=== PATIENT | female | born 1940 | race Caucasian/White ===

== ENCOUNTER 2018-08-21 09:38 | Inpatient (IN) | payer MEDICARE, OTHER ==
[2018-08-21] VITALS (11 sets, daily range): BP systolic 133–162; BP diastolic 39–81
[~2018-08-21] VITALS: Ht 165.1 cm; Wt 79.5 kg
[~2018-08-21 09:38] MED LIST: COLACE100 MG PO; LEVOTHYROXINE50 MCG PO; PRILOSEC20 MG PO; VITAMIN AND MI1 EACH PO; VITAMIN D400 UNIT PO; Z.0.ALTACE10 M1 PO; Z.0.NORVASC5 MG PO; Z.0.SYNTHROID88 MCG PO; [UNRECOGNIZED DRUG - OTHER] PO
--- OUTSIDE RECORDS SUMMARY | 2018-08-21 09:41 | XMS REPORT | Summary of Care ---
Author Author [facility] Organization [facility] Address Unknown Phone Unavailable Encounter HQ Encntr_alirenard(FIN) [id number] Date(s): 04/23/17 - 04/23/17 [facility] [address] [place] [address]- Discharge Disposition: Home or Self Care Attending Physician: Mike Tay MD Referring Physician: Physician, Non Associated MD Vital Signs No data available for this section Problem List No data available for this section Allergies, Adverse Reactions, Alerts No data available for this section Medications No data available for this section Results No data available for this section Immunizations No data available for this section Procedures No data available for this section Social History No data available for this section Assessment and Plan No data available for this section
--- OUTSIDE RECORDS SUMMARY | 2018-08-21 09:41 | XMS REPORT | Continuity of Care Document ---
Author Author [facility] Interface Address Unknown Phone Unavailable Problems Problem Status Onset Date Classification Date Reported Comments Source ROUTINE Active 06/08/2018 [facility] LT HEART CATH Active 01/23/2018 [facility] DX N64.4=// SILAS RICHEY - Active 04/17/2017 [facility] SCREENING MAMMOGRAM Active 02/07/2016 [facility] DENSE BREAST Active 09/15/2014 [facility] MAMMO CALL BACK *CALCIFICATIONS* Active 02/17/2014 [facility] SCREENING MAMMO Active 02/02/2014 [facility] LUMP OR MASS IN BREAST Active [facility] SCREEN MAMMOGRAM NEC Active [facility] ENCNTR SCREEN MAMMOGRAM FOR MALIGNANT NE Active [facility] MASTODYNIA Active [facility] Medications Medication Details Route Status Patient Instructions Ordering Provider Order Date Source Allergies, Adverse Reactions, Alerts Substance Category Reaction Severity Reaction type Status Date Reported Comments Source Immunizations Immunization Date Given Site Status Last Updated Comments Source Results Order Name Results Value Reference Range Date Interpretation Comments Source Breast Mammo Scrn HOME incl CAD MA Breast Mammo Scrn HOME incl CAD MA BILATERAL DIGITAL SCREENING MAMMOGRAM WITH CAD WITH ADDITIONAL VIEWS: 06/23/2018 CLINICAL: Screening/Z12.31. Current study was evaluated with a Computer Aided Detection (CAD) system. COMPARISON:Comparison is made to exams dated: 04/23/2017 mammogram, 02/16/2016 mammogram, 09/22/2014 mammogram, 02/23/2014 mammogram, 02/11/2014 mammogram - [facility], and 12/30/2007 mammogram. TECHNIQUE: Mammographic views were obtained using digital acquisition. Bring Lighta Version 1.3 was utilized for computer aided detection. FINDINGS: There are scattered fibroglandular densities in both breasts. There are benign calcifications, densities, and nodules in both breasts. No significant masses, calcifications, or other findings are seen in either breast. There has been no significant interval change. IMPRESSION: BENIGN RECOMMENDATION:There is no mammographic evidence of malignancy. A 1 year screening mammogram is recommended.(06/24/2019) This exam was interpreted at [id number] for [facility]. Judi baxter/penrad:06/23/2018 09:22:18 Material Spreader(s): Brooke Ragsdale, [facility] letter sent: BI-RADS 1/2 Mammogram BI-RADS: 2 Benign 06/23/2018 - - Read by: Judi Varma MD Dictated Date/time: 06/23/18 09:22 Electronically Signed by: Judi Varma MD 06/23/18 09:22 FINAL REPORT [facility] Breast Limited Uni US Breast Limited Uni US - BREAST LIMITED UNI US/L ULTRASOUND OF LEFT BREAST: 04/23/2017 CLINICAL: /Pain. Comparison is made to exams dated: 04/23/2017 mammogram, 02/16/2016 mammogram, 09/22/2014 mammogram, 02/23/2014 mammogram and 02/11/2014 mammogram - [facility]. Color flow and real-time ultrasound of the left breast were performed. Solo scale images of the real-time examination were reviewed. No abnormalities were seen sonographically in the left breast. IMPRESSION: NEGATIVE There is no sonographic evidence of malignancy. There is no mammographic or sonographic abnormality seen in the left breast to correspond with the pain. A 1 year screening mammogram is recommended. The results were reviewed with the patient. Judi baxter/penrad:04/23/2017 15:44:47 Material Spreader: Deborah Escobar, [facility] This exam was dictated and interpreted by [id number] for [facility]. letter sent: Normal exam Ultrasound BI-RADS: 1 Negative 04/23/2017 - - Read by: Judi Varma MD Dictated Date/time: 04/23/17 15:44 Electronically Signed by: Judi Varma MD 04/23/17 15:44 FINAL REPORT [facility] Breast Mammo Diag HOME incl CAD MA Breast Mammo Diag HOME incl CAD MA - BREAST MAMMO DIAG HOME INCL CAD MA BILATERAL DIGITAL DIAGNOSTIC MAMMOGRAM WITH CAD: 04/23/2017 CLINICAL: /Left Breast Pain. Current study was evaluated with a Computer Aided Detection (CAD) system. Comparison is made to exams dated: 02/16/2016 mammogram, 09/22/2014 mammogram, 02/23/2014 mammogram, 02/11/2014 mammogram - [facility], 12/30/2007 mammogram and 02/25/2006 mammogram. There are scattered fibroglandular densities in both breasts. There are benign calcifications in both breasts. There also are benign densities and nodules in both breasts. No significant masses, calcifications, or other findings are seen in either breast. There has been no significant interval change. IMPRESSION: INCOMPLETE: NEEDS ADDITIONAL IMAGING EVALUATION There is no mammographic abnormality seen in the left breast to correspond with the pain, however ultrasound is recommended. The results were reviewed with the patient. SUMMARY: Ultrasound will be performed at this time; please see dedicated separate report. Judi baxter/penrad:04/23/2017 15:45:01 Material Spreader: Josefa Cavanaugh, [facility] This exam was dictated and interpreted by [id number] for [facility]. Mammogram BI-RADS: 0 Indeterminate 04/23/2017 - - Read by: Judi Varma MD Dictated Date/time: 04/23/17 15:45 Electronically Signed by: Judi Varma MD 04/23/17 15:45 FINAL REPORT [facility] Digital Mammo Screen Home MA w jie Digital Mammo Screen Home MA w jie - DIGITAL MAMMO SCREEN HOME MA W JIE BILATERAL DIGITAL SCREENING MAMMOGRAM 3D/2D WITH CAD: 02/16/2016 CLINICAL: Routine. 2D digital mammographic images and 3D digital tomosynthesis images were obtained in the CC and MLO projections. Current study was evaluated with a Computer Aided Detection (CAD) system. Comparison is made to exams dated: 09/22/2014 mammogram, 02/23/2014 mammogram, 02/11/2014 mammogram - [facility], 12/30/2007 mammogram, 02/25/2006 mammogram and 03/31/2003 mammogram. There are scattered fibroglandular densities in both breasts. There are benign calcifications in both breasts. There also are benign densities and nodules in both breasts. No significant masses, calcifications, or other findings are seen in either breast. There has been no significant interval change. IMPRESSION: BENIGN There is no mammographic evidence of malignancy. A 1 year screening mammogram is recommended. Judi baxter/penrad:02/19/2016 09:13:37 Material Spreader: Renee Sutton [facility] This exam was dictated and interpreted by [id number] for [facility]. letter sent: Normal exam Mammogram BI-RADS: 2 Benign 02/16/2016 - - Read by: Judi Varma MD Dictated Date/time: 02/19/16 09:13 Electronically Signed by: Judi Varma MD 02/19/16 09:13 FINAL REPORT [facility] Digital Mammo DX Uni MA Digital Mammo DX Uni MA - DIGITAL MAMMO DX UNI MA/L UNILATERAL LEFT DIGITAL DIAGNOSTIC MAMMOGRAM WITH CAD: 09/22/2014 CLINICAL: 6 Mo Follow Up. Current study was evaluated with a Computer Aided Detection (CAD) system. Comparison is made to exams dated: 02/23/2014 mammogram, 02/11/2014 mammogram - [facility], 12/30/2007 mammogram, 02/25/2006 mammogram and 03/31/2003 mammogram. There are scattered fibroglandular densities in the left breast. There are benign calcifications in the left breast. There also are benign densities in the left breast. There are stable clustered coarse calcifications in the left breast at 2 o'clock middle depth. These are seen in additional views. This correlates with the prior exam. No other significant masses or calcifications are seen in the breast. There has been no significant interval change. 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 A follow-up in 6 months is recommended. These have shown over 6 months of stability. A follow-up bilateral diagnostic mammogram with left magnification views and possible ultrasound in 6 months is recommended. The patient will be due for her annual exam at that time. Judi baxter/:09/22/2014 14:46:52 Material Spreader: Renee Sutton [facility] This exam was dictated and interpreted by [id number] for [facility]. letter sent: Followup Mammogram BI-RADS: 3 Probably benign 09/22/2014 - - Read by: Judi Varma MD Dictated Date/time: 09/22/14 14:46 Electronically Signed by: Judi Varma MD 09/22/14 14:46 FINAL REPORT [facility] Digital Mammo Screen Home MA w jie Digital Mammo Screen Home MA w jie AMENDMENT: 02/14/2014 Preston Roblero M.D. The patient's prior mammograms dated 12/30/07-03/31/03 are made available and are compared to the most recent examination. No mammographic evidence of malignancy or significant interval change in the right breast, or the left breast densities. However, the described calcifications in the left breast in the slightly upper outer quadrant is not identified on the comparison study. Additional imaging with magnification and lateral views and possible sonography is again recommended for the left breast only. Amended BI-RADS: 0 Indeterminate letter sent: Additional Imaging - DIGITAL MAMMO SCREEN HOME MA W JIE BILATERAL DIGITAL SCREENING MAMMOGRAM 3D/2D WITH CAD: 02/11/2014 CLINICAL: Screen. 2D digital mammographic images and 3D digital tomosynthesis images were obtained in the CC and MLO projections. Current study was evaluated with a Computer Aided Detection (CAD) system. Comparison is made to exams dated: 12/30/2007 mammogram, 02/25/2006 mammogram and 03/31/2003 mammogram. Current study contains 4 films. There are scattered fibroglandular densities in both breasts. There are benign calcifications in the left breast. There is a lobulated density with a circumscribed margin in the right breast at 2 o'clock anterior depth. There also are clustered heterogeneous calcifications in the right breast at 11 o'clock middle depth. There is an oval density with a circumscribed margin in the left breast at 7 o'clock in the retroareolar region. There also are grouped heterogeneous calcifications in the left breast at 1 o'clock anterior depth. No other significant masses or calcifications are seen in either breast. IMPRESSION: INCOMPLETE: NEEDS ADDITIONAL IMAGING EVALUATION The lobulated density in the right breast at 2 o'clock anterior depth is indeterminate. Spot compression and lateral views as well as a possible ultrasound are recommended. The clustered heterogeneous calcifications in the right breast at 11 o'clock middle depth are indeterminate. Spot magnification and lateral views are recommended. The oval density in the left breast at 7 o'clock in the retroareolar region is indeterminate. Spot compression and lateral views as well as a possible ultrasound are recommended. The grouped heterogeneous calcifications in the left breast at 1 o'clock anterior depth are indeterminate. Spot magnification and lateral views are recommended. Preston Roblero M.D. btp/penrad:02/11/2014 14:37:18 Material Spreader: Josefa Cavanaugh, [facility] This exam was dictated and interpreted by [id number] for [facility]. letter sent: Additional Imaging Mammogram BI-RADS: 0 Indeterminate 02/11/2014 - - Read by: Preston Roblero MD Dictated Date/time: 02/14/14 09:02 Electronically Signed by: Preston Roblero MD 02/14/14 09:02 FINAL REPORT - - Read by: Preston Roblero MD Dictated Date/time: 02/11/14 14:37 Electronically Signed by: Preston Roblero MD 02/11/14 14:37 FINAL REPORT [facility] Vital Signs Vital Sign Value Date Comments Source Encounters Location Location Details Encounter Type Encounter Number Reason For Visit Attending Provider ADM Date DC Date Status Source [facility] Outpatient [id number] Silas Puttermsejal 02/23/2014 02/24/2014 [facility] Outpatient [id number] Silas Putterman 09/22/2014 09/23/2014 [facility] Outpatient [id number] Silas Putterman 02/16/2016 02/17/2016 [facility] Outpatient [id number] Non Physician 04/23/2017 04/24/2017 [facility] Procedures Procedure Code Date Perfomer Comments Source
--- OUTSIDE RECORDS SUMMARY | 2018-08-21 09:41 | XMS REPORT | Summary of Care ---
Author Organization Unknown Address Unknown Phone Unavailable Encounter HQ Encntr_leah(KAIT) [id number] Date(s): 02/23/14 - 02/23/14 [facility] [address] Discharge Disposition: Home Physician Attending: Mike Tay MD Physician_Referring: Mike Tay MD Reason for Visit MAMMO CALL BACK *CALCIFICATIONS* Problem List No data available for this section Allergies, Adverse Reactions, Alerts No data available for this section Medications No data available for this section Medications Administered During Your Visit No data available for this section Immunizations No data available for this section
--- OUTSIDE RECORDS SUMMARY | 2018-08-21 09:41 | XMS REPORT | Summary of Care ---
Author Organization Unknown Address Unknown Phone Unavailable Encounter HQ Encntr_alias(KAIT) [id number] Date(s): 09/22/14 - 09/22/14 [facility] [address] [place] [address]- [phone] Discharge Disposition: Home Physician Attending: Mike Tay MD Physician_Referring: Mike Tay MD Vital Signs No data available for [...]
--- OUTSIDE RECORDS SUMMARY | 2018-08-21 09:41 | XMS REPORT | Summary of Care ---
Author Author [facility] Organization [facility] Address Unknown Phone Unavailable Encounter HQ Yungr_janeyrenard(KAIT) [id number] Date(s): 02/16/16 - 02/16/16 [facility] [address] [place] [address]- [phone] Discharge Disposition: Home Attending Physician: Mike Tay MD Referring Physician: Mike Tay MD Vital Signs No data [...]
[2018-08-21] MEDS ORDERED: PRAVASTATIN SOD10 MG (10:17)
[2018-08-21] MEDS ORDERED: METOPROLOL TART25 MG PO (10:17)
[2018-08-21] MEDS ORDERED: HYDROCHLOROTHIA25 MG PO (10:17)
--- NOTE | 2018-08-21 10:28 | NUR ---
Dr. Philip spoke to Dr. Looney regarding patient and consultation.
[2018-08-21] MEDS ORDERED: ASPIRIN 81 MG CHEW TAB PO ONE (10:30)
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
--- NOTE | 2018-08-21 11:00 | Diagnostic Imaging Report ---
Examination: Single AP view of the chest. COMPARISON: None. INDICATION: Chest tightness DISCUSSION: Overlying lead obscures the left lower lung zone. Lungs are well-inflated and without focal consolidation, pleural effusion, or pneumothorax. Cardiomediastinal contour and pulmonary vasculature are within normal limits for portable, AP technique. Convexity of the right paratracheal region of the mediastinum likely reflects great vessel tortuosity. No acute osseous abnormality. IMPRESSION: 1. No acute cardiopulmonary abnormalities. Signed by: Dr. Pranay William M.D. on 08/21/2018 10:57 AM
[2018-08-21 11:03] LABS: BASOPHILS % 0.5 % (0.0-1.0); EOSINOPHILS % 0.4 % (0.0-6.0); HEMATOCRIT 44.1 % (34.2-44.1); HEMOGLOBIN 14.8 g/dL (12.0-16.0); LYMPHOCYTES % 26.1 % (18.0-39.1); MEAN CORPUSCULAR HEMOGLOBIN 30.8 pg (28-32); MEAN CORPUSCULAR HGB CONC 33.6 g/dL (31-35); MEAN CORPUSCULAR VOLUME 91.7 fL (81-99); MONOCYTES # (AUTO) 0.7 (0.2-0.8); MONOCYTES % 9.1 % (4.4-11.3); NEUTROPHILS # (AUTO) 4.9 (2.1-6.9); NEUTROPHILS % 63.5 % (38.7-80.0); PLATELET COUNT 251 x10e3/uL (140-360); RED BLOOD COUNT 4.81 x10e6/uL (3.6-5.1); RED CELL DISTRIBUTION WIDTH 12.1 % (11.7-14.4)
[2018-08-21 11:24] LABS: ALANINE AMINOTRANSFERASE 18 IU/L (0-55); ALBUMIN 4.3 g/dL (3.5-5.0); ALBUMIN/GLOBULIN RATIO 1.6 (0.8-2.0); ALKALINE PHOSPHATASE 58 IU/L (40-150); ANION GAP 16.8 mmol/L (8-16); BLOOD UREA NITROGEN 17 mg/dL (7-26); BUN/CREATININE RATIO 21 (6-25); CALCIUM 9.6 mg/dL (8.4-10.2); CARBON DIOXIDE 27 mmol/L (22-29); CHLORIDE 105 mmol/L (98-107); CREATINE KINASE 64 IU/L (29-168); CREATININE, SERUM 0.82 mg/dL (0.57-1.11); EST GLOMERULAR FILTRATION RATE > 60 ML/MIN (60-); GLUCOSE 115 mg/dL (74-118); POTASSIUM 3.8 mmol/L (3.5-5.1); SODIUM 145 mmol/L (136-145)
--- OUTSIDE RECORDS SUMMARY | 2018-08-21 11:30 | XMS REPORT ---
Author [facility] Address Unknown Phone Unavailable Care Team Providers Care Receiving Worker Name Role Phone Mustapha BUCKNER Unavailable Unavailable Problems This patient has no known problems. Allergies, Adverse Reactions, Alerts This patient has no known allergies or adverse reactions. Medications This patient has no known medications. Results Test Description Test Time Test Comments Text Results Atomic Results Result Comments CHEST SINGLE (PORTABLE) 2018-08-21 10:55:00 [facility] [address] [address] Patient Name: ROSEANNA HAM MR #: [id number] : 1940 Age/Sex: 77/F Req #: [id number] Adm Physician: Ordered by: MIKE BUCKNER MD Report #: [id number] Location: ER Room/Bed: Procedure: [id number] DX/CHEST SINGLE (PORTABLE) Exam Date: 08/21/18 Exam Time: 1020 REPORT STATUS: Signed Examination: Single AP view of the chest. COMP ARISON: None. INDICATION: Chest tightness DISCUSSION: Overlying lead obscures the left lower lung zone. Lungs are well-inflated and without focal consolidation, pleural effusion, or pneumothorax. Cardiomediastinal contour and pulmonary vasculature are within normal limits for portable, AP technique. Convexity of the right paratracheal region of the mediastinum likely reflects great vessel tortuosity. No acute osseous abnormality. IMPRESSION: 1. No acute cardiopulmonary abnormalities. Signed by: Dr. Palak Cespedes M.D. on 08/21/2018 10:57 AM Dictated By: PALAK CESPEDES MD 1057 Transcribed By: COLTON on 08/21/181056 COPY TO: MIKE BUCKNER MD
--- NOTE | 2018-08-21 11:36 | NUR ---
PT PLACED IN HOSP BED
--- NOTE | 2018-08-21 14:43 | Consultation ---
DATE OF CONSULTATION: CARDIOLOGY CONSULTATION REASON FOR CONSULTATION: Bradycardia. HISTORY OF PRESENT ILLNESS: This is a 77-year-old woman who has a history of nonobstructive coronary artery disease, chronic left bundle branch block, hypertension, and hypothyroidism, who presented to her primary care provider with symptoms of chest discomfort and a thumping sensation within her chest with some generalized malaise and fatigue. She denies any significant shortness of breath, lightheadedness, dizziness, or syncope. Patient checked her blood pressure, noted her heart rate to be in the 40s and went to her primary care provider. There, the patient was noted to be in second-degree heart block and was transported here to our facility. She is currently hemodynamically stable and asymptomatic, lying comfortably in bed with a heart rate in the high 30s, low 40s. REVIEW OF SYSTEMS: A 12-point review of systems was conducted, is negative otherwise except as above in the HPI. PAST MEDICAL HISTORY: As stated above in the HPI. PAST SURGICAL HISTORY: Cardiac catheterization. PAST FAMILY HISTORY: No premature coronary artery disease or sudden cardiac . SOCIAL HISTORY: No illicit drug use, alcohol use, tobacco use. ALLERGIES: NONSTEROIDAL ANTI-INFLAMMATORY DRUGS. MEDICATIONS: See medication reconciliation form. PHYSICAL EXAMINATION VITAL SIGNS: Temperature is 97.8, heart rate is 42, oxygen saturation is 100% on room air, respiratory rate is 12, blood pressure is 133/41. GENERAL: She is a well-appearing elderly woman, lying comfortably in bed. HEAD: Normocephalic, atraumatic. EYES: The extraocular muscles are intact. Conjunctivae are clear. NECK: No JVD, no bruits. CARDIOVASCULAR: She is bradycardic. Regular rhythm with ectopy. Normal S1 and S2. Mild systolic murmur at the right sternal border. LUNGS: Clear to auscultation bilaterally. No wheezing, no rales. ABDOMEN: Soft, nontender, nondistended. Normoactive bowel sounds. EXTREMITIES: No clubbing, cyanosis, or edema. VASCULAR: Two-plus pulses. SKIN: Warm, dry, intact. NEUROLOGIC: No focal deficits noted. Cranial nerves grossly intact. PSYCHIATRIC: Normal mood and affect. LABORATORY DATA: All reviewed. White blood cell count is 7.6, hemoglobin 14.8, platelets 251. Sodium 145, creatinine 0.82. Normal liver function tests. Troponin less than 0.05. A 12-lead electrocardiogram shows 2nd-degree heart block with 2:1 A-V conduction with a heart rate in the 40s, left bundle branch block. IMPRESSIONS 1. A 2nd-degree atrioventricular block with 2:1 conduction. 2. Left bundle branch block. 3. Nonobstructive coronary artery disease. 4. Hypothyroidism. 5. Hypertension. RECOMMENDATIONS: Continue to hold all A-V carlos blockers and metoprolol at this point in time. Continue to monitor closely on telemetry. Continue other antihypertensives that do not affect the A-V carlos conduction. Will obtain a 2-D echocardiogram, check a thyroid function panel. Will ask electrophysiology to see the patient. Thank you for the consultation. Will follow along with you. Job#: [id number] KIANNA
--- NOTE | 2018-08-21 17:57 | NUR ---
jaclyn bath completed. 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 consent signed.
[2018-08-21] MEDS ORDERED: BACITRACIN 50,000 UNIT VIAL ONE (18:36)
[2018-08-21] MEDS ORDERED: FENTANYL CITRATE/PF 100MCG/2 ML INJ ONE ×2 (18:36→20:05)
[2018-08-21] MEDS ORDERED: MIDAZOLAM HCL 2 MG/2 ML VIAL ONE ×3 (18:36→19:46)
[2018-08-21] MEDS ORDERED: VANCOMYCIN 1GM/NS 250 ML 250 ML ONE (18:37)
[2018-08-21] MEDS ORDERED: LIDOCAINE HCL 1% LOCAL INJ 20 ML VIAL ONE (18:37)
[2018-08-21] MEDS ORDERED: SODIUM CHLORIDE 0.9% 1000ML 2,000 ML ONE (18:37)
[2018-08-21] MEDS ORDERED: SODIUM CHLORIDE 0.9% 500ML 500 ML ONE (18:38)
--- NOTE | 2018-08-21 18:42 | NUR ---
patient left for laboratory associate approximately 1830 for insertion of pacemaker
--- NOTE | 2018-08-21 19:30 | NUR ---
PT IN BOOKMAKER'S CLERK UPON ARRIVAL TO WORK
--- NOTE | 2018-08-21 20:45 | NUR ---
PT ARRIVED FROM SALES AND SERVICE CHANGE LEADER WITH FAMILY AT BEDSIDE, AAOX3, BREATHING EVEN AND UNLABORED, PRESSURE DRSG TO LT SUBCLAVIAN AREA, AND SLING TO LEFT ARM, NO SIGNS OF BLEEDING NOTED.
[2018-08-21] MEDS ORDERED: DOCUSATE SODIUM 100 MG CAP PO PRN (21:00)
--- NOTE | 2018-08-21 21:18 | NUR ---
PAGED DR. WATERMAN FOR PAIN MEDICATION ORDERS
[2018-08-21] MEDS: HYDROCODONE/APAP 5MG-325MG TAB PO PRN (21:50)
--- NOTE | 2018-08-21 22:00 | NUR ---
PAGED DR WATERMAN FOR CONTINUATION OF HOME MEDICATIONS,
--- NOTE | 2018-08-21 22:15 | NUR ---
OK TO CONTINUE HOME MEDS PER DR. WATERMAN
[2018-08-22] VITALS: BP 149/42
[2018-08-22] MEDS: HYDROCODONE/APAP 5MG-325MG TAB PO PRN (03:40)
[2018-08-22 04:00] VITALS: BP 124/48
--- NOTE | 2018-08-22 04:25 | NUR ---
NO CHANGE IN PT'S STATUS, SHE CONTINUES TO BE MONITORED BY IMCU, STAFF, SPOUSE REMAINS AT BEDSIDE.
--- NOTE | 2018-08-22 05:15 | NUR ---
no change in pt's status, hob of bed up slightly, drsg dry and intact to to lt chest wall, sling intact to left arm.
[2018-08-22 05:29] LABS: BASOPHILS % 0.3 % (0.0-1.0); EOSINOPHILS % 0.4 % (0.0-6.0); HEMATOCRIT 37.9 % (34.2-44.1); HEMOGLOBIN 12.8 g/dL (12.0-16.0); LYMPHOCYTES # (AUTO) 1.8 (1.0-3.2); LYMPHOCYTES % 18.7 % (18.0-39.1); MEAN CORPUSCULAR HEMOGLOBIN 30.5 pg (28-32); MEAN CORPUSCULAR HGB CONC 33.8 g/dL (31-35); MEAN CORPUSCULAR VOLUME 90.2 fL (81-99); MONOCYTES # (AUTO) 0.8 (0.2-0.8); NEUTROPHILS # (AUTO) 6.7 (2.1-6.9); NEUTROPHILS % 71.3 % (38.7-80.0); PLATELET COUNT 220 x10e3/uL (140-360); RED CELL DISTRIBUTION WIDTH 12.2 % (11.7-14.4)
[2018-08-22 05:54] LABS: CREATINE KINASE MB 1.2 ng/mL (0-5.0)
[2018-08-22] MEDS ORDERED: LEVOTHYROXINE SODIUM 50 MCG TAB PO SCH (06:00)
[2018-08-22 06:21] LABS: ALANINE AMINOTRANSFERASE 15 IU/L (0-55); ALBUMIN 3.4 g/dL (3.5-5.0); ALBUMIN/GLOBULIN RATIO 1.5 (0.8-2.0); ALKALINE PHOSPHATASE 47 IU/L (40-150); ANION GAP 12.6 mmol/L (8-16); BLOOD UREA NITROGEN 13 mg/dL (7-26); BUN/CREATININE RATIO 19 (6-25); CALCIUM 8.4 mg/dL (8.4-10.2); CARBON DIOXIDE 23 mmol/L (22-29); CHLORIDE 109 mmol/L (98-107); CREATININE, SERUM 0.68 mg/dL (0.57-1.11); EST GLOMERULAR FILTRATION RATE > 60 ML/MIN (60-); GLUCOSE 116 mg/dL (74-118); MAGNESIUM 2.1 MG/DL (1.3-2.1); POTASSIUM 3.6 mmol/L (3.5-5.1); SODIUM 141 mmol/L (136-145)
--- NOTE | 2018-08-22 06:55 | NUR ---
Dr. Foote here to speak to patient and spouse, pt probably to be discharged to home today
[2018-08-22 08:06] LABS: THYROID STIMULATING HORMONE 0.644 uIU/mL (0.350-4.940)
[2018-08-22 08:58] VITALS: BP 139/56
[2018-08-22] MEDS ORDERED: OMEPRAZOLE 20 MG CAP PO SCH (09:00)
[2018-08-22] MEDS ORDERED: METOPROLOL TARTRATE 25 MG TAB PO SCH (09:00)
[2018-08-22 09:07] VITALS: BP 139/56
--- NOTE | 2018-08-22 09:36 | History and Physical ---
CHIEF COMPLAINT: This patient came in with palpitation and pounding of the chest. HISTORY OF PRESENTING ILLNESS: This is Ms. Gladys Gilbert with a history of hypothyroidism, history of hypertension, and nonobstructive coronary artery disease which she has usually felt until 2 days prior to admission. The patient had noticed some chest thumping and palpitations associated with generalized weakness and the patient also had symptoms of lightheadedness. The patient also had some amount of shortness of breath on exertion. She was sent to the emergency room and was found to have second-degree AV block and the patient had a pacemaker put in. PAST MEDICAL HISTORY: History of hypertension, history of hypothyroidism, history of reflux esophagitis, hyperlipidemia. MEDICATIONS: She takes at home are amlodipine 5 mg, docusate 100 mg, hydrochlorothiazide 25 mg, levothyroxine 50 mcg, metoprolol 25 mg, omeprazole 20 mg, rosuvastatin 10 mg, and Altace 10 mg. SURGICAL HISTORY: Includes hysterectomy. The patient also had cholecystectomy, history of tonsillectomy, and adenoidectomy. No other significant history. FAMILY HISTORY: History of hypertension, coronary artery disease, and completed stroke in immediate family. ALLERGIES: INCLUDE NONSTEROIDAL ANTIINFLAMMATORY DRUGS. SOCIAL HISTORY: No ETOH, no IV drug abuse. No history of smoking. REVIEW OF SYSTEMS: Negative for chest pain, positive for palpitation. Positive for shortness of breath. No nausea, vomiting, or diarrhea. No constipation. No rectal bleeding. No hematochezia. No hematemesis. No paresthesias. No hyperesthesias. No weakness and focal neurological changes. No diplopia and no blurry vision either. No headaches. PHYSICAL EXAMINATION GENERAL: The patient is alert and oriented x3, status post pacemaker placement with arm sling on. VITAL SIGNS: Temperature is 98.6, pulse of 80, respirations 17, blood pressure is 149/92, pulse oximetry of 99% on room air. HEENT: Normocephalic, atraumatic. Pupils are reactive to light and accommodation. CVS: S1 and S2, regular rate and rhythm. The patient does have a compression band of the chest wall status post PPM. ABDOMEN: Nontender and nondistended. EXTREMITIES: No clubbing, no cyanosis, and no edema. LABORATORY VALUES: White count was 7.6, hemoglobin is 14.8, hematocrit of 44.1. Rest of the indices were normal. Chemistry: Sodium of 145, potassium 3.8, anion gap was 16.8, creatinine 0.82, and BUN 17. Troponins have been trended to be negative x3. IMAGING STUDIES: Chest x-ray showed no acute cardiac or pulmonary disorders. Consult with electrophysiology was done. The patient had a pacemaker put in yesterday and doing well. We will restart her home medications. ASSESSMENT 1. First-degree AV block. Her initially metoprolol and AV carlos blocking agents were stopped. 2. Nonobstructive coronary artery disease. 3. Hypothyroidism. 4. Hypertension. PLAN: To continue the medications. The patient is doing well. She can be discharged after seen by a quality assurance monitor body. Further recommendations per clinical course. We will also to add a thyroid function test to the panel today. Job#: [id number] MELI
--- NOTE | 2018-08-22 11:59 | Consultation ---
DATE OF CONSULTATION: August 21, 2018 REFERRING PHYSICIAN: Dr. Ryder REASON FOR CONSULT: Heart block. HISTORY OF PRESENT ILLNESS: This is a 77-year-old woman with history of left bundle-branch block, hypertension, who presented with complaints of weakness, feeling tired for about 5 days, associated to chest pain. She was found to be bradycardiac. She was admitted and had been under close observation, was found to be 2:1 AV block. She was taking metoprolol 25 mg and this has been on hold. The patient now has worsening heart block and is progressing to complete heart block on the monitor with ventricular escape rhythm with around 40 beats per minute and she feels dizzy with this. No history of syncope. REVIEW OF SYSTEMS CONSTITUTIONAL: As per HPI. CARDIOVASCULAR: As per HPI. RESPIRATORY: Negative. GASTROINTESTINAL: Negative. GENITOURINARY: Negative. MUSCULOSKELETAL: Negative. EYES: Negative. ENT: Negative. ALLERGY/IMMUNOLOGY: Negative. PSYCHIATRY: Negative. PAST MEDICAL HISTORY: Hypertension. SURGICAL HISTORY: Negative. FAMILY HISTORY: No premature coronary artery disease. SOCIAL HISTORY: Denies alcohol or smoking. PHYSICAL EXAMINATION VITAL SIGNS: Blood pressure 150/60, respirations 20, pulse 40, O2 sat is 98%. GENERAL: In no acute distress. HEENT: Moist mucous membranes. CARDIOVASCULAR: Regular. RESPIRATORY: Clear. ABDOMEN: Soft, nontender. MUSCULOSKELETAL: 2+ distal pulses. NEUROLOGICAL: No focal deficit. SKIN: No lesions. PSYCHIATRY: Normal thought process. EKG: Sinus rhythm, complete heart block with ventricular escape rhythm with left bundle-branch block morphology. IMPRESSION 1. Second-degree atrioventricular block progressing to complete heart block, highly symptomatic, no reversible causes. 2. Normal ejection fraction. RECOMMENDATION: I had a discussion with the patient. Indications, benefits, and risks were discussed in detail with the patient. Patient voices understanding and wishes to proceed. We will plan for a dual-chamber pacemaker placement. Thank you for letting us participate in Ms. Gottis [facility]. Job#: [id number] MELI
--- NOTE | 2018-08-22 12:53 | Progress Note ---
DATE: CARDIOLOGY PROGRESS NOTE SUBJECTIVE: Patient is without any problems this morning. She does endorse some back pain and also some leg spasm, but otherwise feels much better after her pacemaker yesterday. OBJECTIVE VITAL SIGNS: Temperature 98.8, pulse 87, respiratory rate 18, blood pressure 139/56, oxygen saturation 97% on room air. GENERAL: Alert and oriented x3, resting comfortably in bed. Does not appear to be in any acute distress. Family at the bedside. NECK: Supple. No JVD noted. CARDIOVASCULAR: Regular rate and rhythm. Normal S1 and S2. Systolic ejection murmur present. LUNGS: Clear to auscultation throughout. No wheezing. No rhonchi or crackles. ABDOMEN: Rounded. Normoactive bowel sounds. Soft and nontender. LOWER EXTREMITIES: No edema. 2+ pedal pulses. CARDIOVASCULAR MEDICATIONS 1. Levothyroxine 50 mcg. 2. Amlodipine 10 mg p.o. daily. LABS: WBC 9.35, hemoglobin 12.8, hematocrit 37.9, platelets 220. Sodium 141, potassium 3.6, BUN 13, creatinine 0.68, glucose 116. Magnesium 2.1. AST 16, ALT 15, alkaline phosphatase 47, albumin 3.4. TSH 0.644. TELEMETRY: V-paced rhythm. IMPRESSION 1. Second-degree atrioventricular block 2:1 conduction ratio, status post pacemaker yesterday. 2. Left bundle branch block. 3. Nonobstructive coronary artery disease. 4. Hypothyroidism. 5. Hypertension. RECOMMENDATION: Continue above-listed cardiac medications. Continue to hold beta perla at this point. We will evaluate as outpatient and resume at that time. May continue antihypertensives at home and other daily medications. Otherwise, she is cleared for discharge at this point. Surgical site care discussed with patient and family extensively. We will continue to monitor this patient nor signs of bleeding noted on the site. Dictated by: Jamilah Arroyo NP Job#: [id number] MAYNOR
--- NOTE | 2018-08-22 13:11 | NUR ---
SOCIAL WORK INITIAL ASSESSMENT Lockstitch Lining Setter to bedside to discuss plan of care with patient/family. CM/SW role and care transitions discussed. Anticipated discharge plan discussed along with duration of care. CM/SW discussed patients right to make decisions in care. CM/SW work hours given. Patient lives: IN OWN HOUSE WITH FAMILY Admit/Transfer: VIA ED FROM HOME POA/Emergency contact: CHARLOTTE PONCE [phone] OR CELL IS [phone] Current/Previous Home Health: NONE PCP/Follow-up Care: ELLIE Current/Previous DME: NONE Other Services: NONE Employment Status: RETIRED Areas of Concerns: NONE Referral Needs: NONE Education Needs: NONE IMM/MUÑIZ given and signed (if applicable): NA Goal for discharge: RETURN HOME CM/SW left business card at the bedside with contact information. Name and number was also written on the patients whiteboard. Patient verbalized understanding of discussion. CM will follow-up with ongoing discharge and transition of care needs.
--- NOTE | 2018-08-22 13:49 | NUR ---
Called Dr. Foote to make him aware patient's blood pressure 180/86 hr 91 received orders to give Altace 10mg PO
--- NOTE | 2018-08-22 13:54 | NUR ---
called dr. Foote made him aware patient's blood pressure 180/86 prior to discharge, received orders to give patient's blood pressure medications Altace 10mg Po and hydrochlorothiazide 25mg PO once
[2018-08-22] MEDS ORDERED: HYDROCHLOROTHIAZIDE 25 MG TAB PO ONE (14:00)
[2018-08-22] MEDS ORDERED: RAMIPRIL 5 MG CAP PO ONE (14:00)
--- NOTE | 2018-08-22 14:08 | Operative Report ---
DATE OF PROCEDURE: August 21, 2018 PREPROCEDURE DIAGNOSES 1. Second-degree atrioventricular block progressing to third-degree atrioventricular block. 2. Dizziness. POSTPROCEDURE DIAGNOSES 1. Second-degree atrioventricular block progressing to third-degree atrioventricular block. 2. Dizziness. ESTIMATED BLOOD LOSS: 5 mL. COMPLICATIONS: None. PROCEDURES PERFORMED 1. Dual-chamber pacemaker placement. 2. Moderate sedation. Moderate conscious sedation was provided under my direct supervision by sedation-trained nurse. Sedation approximate time 30 minutes, Versed and fentanyl. There were no complications. See sedation form for details. DESCRIPTION OF PROCEDURE: After informed consent was obtained, patient was brought to the electrophysiology laboratory in a fasting nonsedated state. Area over her chest was prepped and draped in the usual sterile fashion. Moderate sedation and prophylactic antibiotic were given. Lidocaine 1% was used as local anesthetic. A 3-cm skin incision was made in the left subclavicular area. Electrocautery, sharp, and blunt dissection were used to reach the muscular fascia, and a pocket was created for eventual implantation of the device. Vascular access was obtained x2 in the left axillary vein using the modified Seldinger technique under fluoroscopic guidance. Two 6-Wallisian sheaths were placed. The ventricular lead advanced to the RV apex, R-wave 22, pacing 0.4 at 0.5, impedance 800; atrial lead to the right atrial appendage, P-wave 4, pacing 1.3 at 0.5, impedance 600. Sheaths were removed from the body. Leads were secured to fascia using Ethibond. Pocket was irrigated with antibiotic solution using the pulse honey processor. Flowable FloSeal was used for hemostasis. Leads were connected to the device and entire pacemaker system placed in the pocket. Incision was closed using Vicryl and Dermabond. Patient tolerated the procedure well. Procedure was deemed complete. SUMMARY OF HARDWARE IMPLANTED 1. The new pacemaker is Lindsay Gazzang, model #L311, [id number]. 2. The atrial lead is 7740, [id number]. 3. The ventricular lead is [employer], 7721, [id number]. IMPRESSION: Successful dual-chamber pacemaker implant via left axillary vein. PLAN 1. Routine postoperative monitoring on telemetry bed. 2. Chest x-ray. 3. Follow up in 2 weeks. Job#: [id number] MAYNOR
--- NOTE | 2018-08-22 15:07 | NUR ---
patient discharged home verbalized understanding.
[2018-08-22] MEDS ORDERED: AMLODIPINE BESYLATE 10 MG TAB PO SCH (22:00)
== END 2018-08-22 15:07 | disposition home or self-care (01) | DRG 244 ==
LOC: ER 09:38 → ERHOLD 11:27 → IMCU 12:16
PROVIDERS: ADMIT Family Medicine; ATTEND Family Medicine
PROC: 0JH606Z Insertion of Pacemaker, Dual Chamber into Chest Subcutaneous Tissue and Fascia, Open Approach (ICD-10-PCS; principal; 2018-08-21)
PROC: 02H63JZ Insertion of Pacemaker Lead into Right Atrium, Percutaneous Approach (ICD-10-PCS; 2018-08-21)
PROC: 02HK3JZ Insertion of Pacemaker Lead into Right Ventricle, Percutaneous Approach (ICD-10-PCS; 2018-08-21)
DX: I44.2 Atrioventricular block, complete (principal); I44.7 Left bundle-branch block, unspecified; I10 Essential (primary) hypertension; E78.5 Hyperlipidemia, unspecified; I25.10 Atherosclerotic heart disease of native coronary artery without angina pectoris; E03.9 Hypothyroidism, unspecified; K21.0 Gastro-esophageal reflux disease with esophagitis; Z88.6 Allergy status to analgesic agent
CPT/HCPCS: 33208; 36415; 71045; 80053; 82550; 82553; 83735; 84436; 84443; 84479; 84484; 85025; 93005; 93306; 99284; J2001; J2250; J3370; J7030; J7040

== ENCOUNTER → 2020-04-18 | Outpatient (CLI) | payer MEDICARE ==
[~2020-04-18] MED LIST changes: +HYDROCHLOROTHIA25 MG PO; +METOPROLOL TART25 MG PO; +PRAVASTATIN SOD10 MG
--- NOTE | 2020-04-18 09:43 | Diagnostic Imaging Report ---
Thyroid ultrasound. History: Thyroid nodules Comparison: Thyroid uptake scan dated 01/22/2012. Discussion: Transverse and longitudinal images of the thyroid were obtained demonstrating diffuse heterogeneous echotexture. The right thyroid lobe measures 5.1 x 2.5 x 2.0 cm. Within the lateral/mid aspect of the right thyroid lobe there is a 4.4 x 3.4 x 4.3 cm heterogeneous well-circumscribed solid and cystic isoechoic nodule. TI-RADS: 3 Within the mid aspect of the right thyroid gland there is a well-circumscribed predominantly cystic nodule with internal echoes measuring 1.7 x 1.3 x 1.5 cm. TI-RADS: 3 The left thyroid lobe measures 3.9 x 1.8 x 1.4 cm. Within the mid pole there is a well-circumscribed hypoechoic nodule with cystic components measuring 1.0 x 0.7 x 0.9 cm. TI-RADS: 3 Within the inferior medial pole there is an additional well-circumscribed hypoechoic nodule measuring 0.7 x 0.4 x 0.6 cm. TI-RADS 3 The isthmus measures 0.4 mm, within normal limits. IMPRESSION: Multiple bilateral thyroid nodules as described above. A large right mid to inferior nodule measuring up to 4.4 cm meets criteria for FNA if not already performed. An additional right mid pole nodule measures up to 1.7 cm and meets criteria for follow-up. The 2 left thyroid nodules require no follow-up. Signed by: Savage Bustos MD on 04/18/2020 9:40 AM
== END ==
LOC: US 08:29
PROVIDERS: ATTEND Family Medicine
DX: E04.1 Nontoxic single thyroid nodule (principal); Z23 Encounter for immunization
CPT/HCPCS: 76536

== ENCOUNTER → 2020-10-18 | Outpatient (CLI) | payer MEDICARE | LOC: US 13:23 | PROVIDERS: ATTEND Family Medicine | DX: E03.9 Hypothyroidism, unspecified (principal) | CPT/HCPCS: 76536 ==

== ENCOUNTER → 2021-12-04 | Outpatient (CLI) | payer MEDICARE ==
[~2021-12-04] MED LIST changes: +ASPIRIN81 MG PO; +ATORVASTATIN CA10 MG PO; +B12 PO; +BENICAR40 MG PO; +QUNOL PO; +SPIRONOLACTONE25 MG PO
== END ==
LOC: US 14:06
PROVIDERS: ATTEND Nurse Practitioner Adult Health
DX: E04.9 Nontoxic goiter, unspecified (principal)
CPT/HCPCS: 76536